=== PATIENT | male | born 1970 ===

== ENCOUNTER 2016-10-22 15:18 | Emergency (ER) | payer BC ==
[2016-10-22 15:57] VITALS: O2SAT 99
--- NOTE | 2016-10-22 17:18 | ED PDOC ---
Arrival/HPI - General Chief Complaint: Lower Extremity Problem/Injury Time Seen by Provider: 10/22/16 15:53 Historian: Patient - History of Present Illness Narrative History of Present Illness (Text): 10/22/16 17:15 46-year-old male presents today with a 3 week history of right leg pain. Patient states pain started after shoveling snow. Patient states the pain started in his low back radiated into his buttocks. Patient states then the pain traveled down into the posterior thigh and then down into the calf. Patient states occasionally he'll get a shooting pains going down the leg. He denies numbness weakness or tingling in the extremity. Patient states the pain is worse with movement. Patient states he is having difficulty standing up straight. He is complaining of some slight low back pain. Past Medical History - Provider Review Nursing Documentation Reviewed: Yes - Travel History Have you recently traveled outside [place] w/in the past 3 mons?: No - Infectious Disease Hx of Infectious Diseases: None - Tetanus Immunization Tetanus Immunization: Unknown - Cardiac Hx Cardiac Disorders: No - Pulmonary Hx Respiratory Disorders: No - Neurological Hx Neurological Disorder: No - HEENT Hx HEENT Disorder: Yes (eye glasses) - Renal Hx Renal Disorder: No - Endocrine/Metabolic Hx Diabetes Mellitus Type 2: Yes - Hematological/Oncological Hx Blood Disorders: No - Integumentary Hx Dermatological Disorder: No - Musculoskeletal/Rheumatological Hx Musculoskeletal Disorders: No - Gastrointestinal Hx Gastrointestinal Disorders: No Hx Bowel Surgery: No - Genitourinary/Gynecological Hx Genitourinary Disorders: No - Psychiatric Hx Psychophysiologic Disorder: No Hx Substance Use: No - Surgical History Hx Appendectomy: Yes Other/Comment: left neck cyst removal. - Anesthesia Hx Anesthesia: No Hx Anesthesia Reactions: No Hx Malignant Hyperthermia: No Family/Social History - Physician Review Nursing Documentation Reviewed: Yes Family/Social History: Unknown Family HX Smoking Status: Current Some Days Smoker Hx Alcohol Use: Yes Frequency of alcohol use: Socially Hx Substance Use: No Allergies/Home Meds Allergies/Adverse Reactions: Allergies No Known Allergies Allergy (Verified 10/22/16 16:11) Review of Systems - Review of Systems Constitutional: absent: Fatigue, Fevers Respiratory: absent: SOB, Cough Cardiovascular: absent: Chest Pain, Palpitations Gastrointestinal: absent: Abdominal Pain, Vomiting Genitourinary Male: absent: Dysuria, Frequency, Hematuria, Urinary Output Changes Musculoskeletal: Arthralgias, Back Pain. absent: Neck Pain Skin: absent: Rash, Pruritis Neurological: absent: Headache, Dizziness Psychiatric: absent: Anxiety, Depression Physical Exam Vital Signs Reviewed: Yes Vital Signs Temp Pulse Resp BP Pulse Ox 10/22/16 15:52 98.8 F 90 16 121/78 99 Temperature: Afebrile Blood Pressure: Normal Pulse: Regular Respiratory Rate: Normal Appearance: Positive for: Well-Appearing, Non-Toxic, Comfortable Pain Distress: None Mental Status: Positive for: Alert and Oriented X 3 - Systems Exam Head: Present: Atraumatic Mouth: Present: Moist Mucous Membranes Neck: Present: Normal Range of Motion Respiratory/Chest: Present: Clear to Auscultation, Good Air Exchange. No: Respiratory Distress, Accessory Muscle Use Cardiovascular: Present: Regular Rate and Rhythm, Normal S1, S2. No: Murmurs Abdomen: No: Tenderness Back: Present: Normal Inspection, Pain with Leg Raise. No: Midline Tenderness, Paraspinal Tenderness Lower Extremity: Present: CALF TENDERNESS, NORMAL PULSES, Normal ROM, Tenderness (Right leg: There is tenderness noted to the posterior calf and posterior thigh. There is full range of motion of the knee. Sensation and distal pulses are intact. Cap refill is less than 2), Neurovascularly Intact, Capillary Refill < 2 s. No: Edema, Swelling, Erythema, Deformity, Temperature Abnormalties Neurological: Present: GCS=15, Motor Func Grossly Intact, Normal Sensory Function Skin: Present: Warm, Dry, Normal Color. No: Rashes Psychiatric: Present: Alert, Oriented x 3 Medical Decision Making ED Course and Treatment: 10/22/16 17:28 Patient nontoxic well-appearing in no distress with stable vital signs. Toradol IM Patient is driving home so we will not give any sedating medications at this time. duplex of the right leg; no dvt verbal report from [facility]. Patient reassessment: Feeling better with medications ambulating with a steady gait. Muscle strength 5 out of 5 bilaterally. Patient states he has an appointment with the orthopedist Dr. Coleman tomorrow and has an appointment with his doctor on the 03 of november Patient with symptoms related to possible sciatica started after shoveling. Getting shooting pain down the right leg intermittently 3 weeks. Denies numbness weakness or tingling I advised to followup with the orthopedist within the next 2 days. Return if symptoms worsen persist or new symptoms develop Patient verbalizes understanding of discharge instructions and need for immediate followup. Impression: Back pain, leg pain Motrin every 6 hours as needed for pain Flexeril one tablet every 8 hours as needed for muscle spasms: May cause drowsiness percocet; one tablet every 6 hours as needed for moderate to severe pain: May cause drowsiness Followup with the orthopedist within the next 2 days Followup with primary care physician within the next 2 days Return if symptoms worsen persist or if new symptoms develop - RAD Interpretation Radiology Orders: 10/22/16 16:12 DUPLEX LOWER EXTRM VEIN RIGHT [US] Stat - Medication Orders Current Medication Orders: Discontinued Medications Ketorolac Tromethamine (Toradol) 60 mg IM STAT STA Stop: 10/22/16 16:18 Last Admin: 10/22/16 16:32 Dose: 60 MG IM Administration Charges Document 10/22/16 16:32 [facility] (Rec: 10/22/16 16:32 [facility] [id number]) Charges for Administration # of IM Administrations 1 Disposition/Present on Arrival - Present on Arrival Any Indicators Present on Arrival: No History of DVT/PE: No History of Uncontrolled Diabetes: No Urinary Catheter: No History of Decub. Ulcer: No History Surgical Site Infection Following: None - Disposition Have Diagnosis and Disposition been Completed?: Yes Diagnosis: Leg pain Disposition: HOME/ ROUTINE Disposition Time: 17:13 Patient Plan: Discharge Condition: GOOD Discharge Instructions (ExitCare): Leg Pain (ED), Sciatica (ED) Additional Instructions: Motrin every 6 hours as needed for pain Flexeril one tablet every 8 hours as needed for muscle spasms: May cause drowsiness percocet; 1 tablet every 6 hours as needed for moderate to severe pain; may cause drowsiness. Followup with the orthopedist within the next 2 days Followup with primary care physician within the next 2 days Return if symptoms worsen persist or if new symptoms develop Prescriptions: Cyclobenzaprine [Cyclobenzaprine HCl] 10 mg PO Q8 #10 tab Ibuprofen [Motrin] 600 mg PO Q6H PRN #20 tab PRN Reason: pain/fever reduction oxyCODONE/Acetaminophen [Percocet 5/325 mg Tab] 1 tab PO Q6H PRN #10 tab PRN Reason: moderate to severe pain Referrals: Audrey Mera MD [Staff Provider] - Follow up with primary Cuco Coleman DO [Staff Provider] - Follow up with primary José Miguel Valencia MD [Staff Provider] - Follow up with primary Forms: WORK NOTE
[2016-10-22 17:37] VITALS: BP 116/72; PULSE 70; RESP 18; TEMP 98
--- NOTE | 2016-10-22 18:16 | US ---
PROCEDURE: Right lower extremity venous US HISTORY: Leg pain and swelling. Evaluate for DVT. PHYSICIAN(S): Regan Monroe M.D. TECHNIQUE: Duplex sonography and color-flow Doppler with graded compression were used to evaluate the deep venous system of the right lower extremity. FINDINGS: The visualized deep venous system of the right lower extremity is sonographically normal and compressible. Normal waveforms and augmentation are seen. There is no sonographic evidence for deep venous thrombosis in the visualized segments of the right lower extremity. IMPRESSION: 1. No sonographic evidence for deep venous thrombosis in the visualized segments of the right lower extremity.
== END 2016-10-22 17:40 | disposition home or self-care (01) ==
LOC: ED 15:18
DX: M79.604 Pain in right leg (principal); E11.9 Type 2 diabetes mellitus without complications
CPT/HCPCS: 93971; 96372; 99283; J1885

== ENCOUNTER 2017-11-03 09:27 | Emergency (ER) | payer BC ==
[2017-11-03 09:49] VITALS: TEMP 98.8
[2017-11-03 09:50] VITALS: BMI 26.2
--- NOTE | 2017-11-03 10:12 | ED PDOC ---
Arrival/HPI - General Chief Complaint: Chest Pain Time Seen by Provider: 11/03/17 09:47 Historian: Patient - History of Present Illness Narrative History of Present Illness (Text): 11/03/17 10:11 A 47 year old male, whose past medical history includes hypertension and diabetes, presents to the emergency department complaining of right-side chest pain worsening since yesterday. Patient reports pain worsens with movement. Notes also experiencing dyspnea. Patient denies any fever, any trauma, or any other complaints at this time. No PMD Past Medical History - Provider Review Nursing Documentation Reviewed: Yes - Infectious Disease Hx of Infectious Diseases: None - Tetanus Immunization Tetanus Immunization: Unknown - Cardiac Hx Cardiac Disorders: Yes - Pulmonary Hx Respiratory Disorders: No - Neurological Hx Neurological Disorder: No - HEENT Hx HEENT Disorder: Yes (eye glasses) - Renal Hx Renal Disorder: No - Endocrine/Metabolic Hx Endocrine Disorders: Yes Hx Diabetes Mellitus Type 2: Yes - Hematological/Oncological Hx Blood Disorders: No - Integumentary Hx Dermatological Disorder: No - Musculoskeletal/Rheumatological Hx Musculoskeletal Disorders: No - Gastrointestinal Hx Gastrointestinal Disorders: No Hx Bowel Surgery: No - Genitourinary/Gynecological Hx Genitourinary Disorders: No - Psychiatric Hx Psychophysiologic Disorder: No Hx Substance Use: No - Surgical History Hx Appendectomy: Yes Other/Comment: left neck cyst removal - Anesthesia Hx Anesthesia: Yes Hx Anesthesia Reactions: No Hx Malignant Hyperthermia: No Family/Social History - Physician Review Nursing Documentation Reviewed: Yes Family/Social History: No Known Family HX Smoking Status: Current Some Days Smoker Hx Alcohol Use: Yes Frequency of alcohol use: Socially Hx Substance Use: No Allergies/Home Meds Allergies/Adverse Reactions: Allergies No Known Allergies Allergy (Verified 10/22/16 16:11) Home Medications: Home Meds Medication Instructions Recorded Confirmed ALPRAZolam [Xanax] 0.25 mg PO BID 11/03/17 11/03/17 Canagliflozin [Invokana] 300 mg PO DAILY 11/03/17 11/03/17 Glimepiride [amaRYL] 2 mg PO DAILY 11/03/17 11/03/17 Lisinopril [Zestril] 10 mg PO DAILY 11/03/17 11/03/17 Saxagliptin HCl/Metformin HCl 1 tab PO BID 11/03/17 11/03/17 [Kombiglyze Xr 2.5-1,000 mg Tab] Review of Systems - Physician Review All systems were reviewed & negative as marked: Yes - Review of Systems Constitutional: absent: Fevers Cardiovascular: Chest Pain (right side, worsening since yesterday), VU Physical Exam Vital Signs Reviewed: Yes Vital Signs Temp Pulse Resp BP Pulse Ox 11/03/17 11:42 81 17 132/80 99 11/03/17 11:16 89 18 138/79 98 11/03/17 09:32 98.8 F 91 H 17 141/88 98 Temperature: Afebrile Blood Pressure: Normal Pulse: Regular Respiratory Rate: Normal Appearance: Positive for: Well-Appearing Pain Distress: None Mental Status: Positive for: Alert and Oriented X 3 Finger Stick Blood Glucose: 143 - Systems Exam Head: Present: Atraumatic, Normocephalic Pupils: Present: PERRL Extroacular Muscles: Present: EOMI Conjunctiva: Present: Normal Mouth: Present: Moist Mucous Membranes Neck: Present: Normal Range of Motion Respiratory/Chest: Present: Clear to Auscultation, Good Air Exchange. No: Respiratory Distress, Accessory Muscle Use Cardiovascular: Present: Regular Rate and Rhythm, Normal S1, S2. No: Murmurs Abdomen: No: Tenderness, Distention, Peritoneal Signs Back: Present: Normal Inspection Upper Extremity: Present: Normal Inspection. No: Cyanosis, Edema Lower Extremity: Present: Normal Inspection. No: Edema Neurological: Present: GCS=15, CN II-XII Intact, Speech Normal Skin: Present: Warm, Dry, Normal Color. No: Rashes Psychiatric: Present: Alert, Oriented x 3, Normal Insight, Normal Concentration Medical Decision Making ED Course and Treatment: 11/03/17 10:13 Impression: 47 year old male with chest pain. Benign physical exam. Plan: -- EKG -- Chest X-ray -- Labs -- Urinalysis -- Reassess and disposition Progress Notes: EKG: Ordered, reviewed, and independently interpreted the EKG. Rate : 94 BPM Rhythm : NSR Interpretation : No ST-segment elevations or depressions, no T-wave inversions, normal intervals. Comparison : No previous EKG for comparison. 11/03/2017 10:44 Chest X-ray IMPRESSION: No active pulmonary disease. Dictator: Ev Purdy MD 11/03/17 16:48 atypical right sided pain, worse with movement. pt offered observation in hospital declines, notified of leukocytosis. advise outpt fu and return precautions - Lab Interpretations Lab Results: 11/03/17 09:40 11/03/17 09:40 Lab Results 11/03/17 10:30: Urine Color Yellow, Urine Appearance Clear, Urine pH 5.0, Ur Specific Otis 1.020, Urine Protein Negative, Urine Glucose (UA) >=1000, Urine Ketones Negative, Urine Blood Negative, Urine Nitrate Negative, Urine Bilirubin Negative, Urine Urobilinogen 0.2, Ur Leukocyte Esterase Negative 11/03/17 09:40: Sodium 141, Potassium 4.2, Chloride 102, Carbon Dioxide 28, Anion Gap 15, BUN 19, Creatinine 0.8, Est GFR ( Amer) > 60, Est GFR (Non- Af Amer) > 60, Random Glucose 145 H, Calcium 10.4, Magnesium 1.8, Total Bilirubin 0.3, AST 26, ALT 58 H, Alkaline Phosphatase 86, Lactate Dehydrogenase 486, Total Creatine Kinase 88, Troponin I < 0.01, NT-Pro-B Natriuret Pep 13.9, Total Protein 7.7, Albumin 4.8, Globulin 2.9, Albumin/Globulin Ratio 1.6 11/03/17 09:40: PT 10.4, INR 0.91 L, APTT 33.4, D-Dimer, Quantitative < 200 11/03/17 09:40: WBC 12.0 H, RBC 5.27, Hgb 15.6, Hct 45.4, MCV 86.1, MCH 29.6, MCHC 34.4, RDW 13.6, Plt Count 355, MPV 9.5, Gran % 60.9, Lymph % (Auto) 29.1, Woodson % (Auto) 7.1 H, Eos % (Auto) 2.4, Baso % (Auto) 0.5, Gran # 7.31 H, Lymph # (Auto) 3.5 H, Woodson # (Auto) 0.9 H, Eos # (Auto) 0.3, Baso # (Auto) 0.06 I have reviewed the lab results: Yes - RAD Interpretation Radiology Orders: 11/03/17 10:08 CHEST PORTABLE [RAD] Stat - Medication Orders Current Medication Orders: Discontinued Medications Naproxen (Anaprox Ds) 550 mg PO STAT STA Stop: 11/03/17 10:45 Last Admin: 11/03/17 11:13 Dose: 550 mg - Scribe Statement The provider has reviewed the documentation as recorded by the Angela Quintero Provider Nathanielibe Attestation: All medical record entries made by the Scribe were at my direction and personally dictated by me. I have reviewed the chart and agree that the record accurately reflects my personal performance of the history, physical exam, medical decision making, and the department course for this patient. I have also personally directed, reviewed, and agree with the discharge instructions and disposition. Disposition/Present on Arrival - Present on Arrival Any Indicators Present on Arrival: No History of DVT/PE: No History of Uncontrolled Diabetes: No Urinary Catheter: No History of Decub. Ulcer: No History Surgical Site Infection Following: None - Disposition Have Diagnosis and Disposition been Completed?: Yes Diagnosis: Chest pain Disposition: HOME/ ROUTINE Disposition Time: 04:00 Condition: STABLE Discharge Instructions (ExitCare): Chest Pain (ED) Additional Instructions: return to er with worsening symptoms or concerns. please see specialist. Prescriptions: Naproxen 500 mg PO BID PRN #14 PRN Reason: Pain, Mild (1-3) Referrals: Neil Barraza MD [Primary Care Provider] - Follow up with primary Rock Richard MD [Staff Provider] - Follow up with primary Forms: [employer] (Telugu)
[2017-11-03 10:16] LABS: BASO # 0.06 K/mm3 (0.0-2.0); BASO % 0.5 % (0.0-3.0); EOS # 0.3 (0.0-0.7); EOS % 2.4 % (1.5-5.0); GRAN # 7.31 (1.4-6.5); GRAN % 60.9 % (50.0-68.0); HEMOGLOBIN 15.6 g/dL (14.0-18.0); LYMPH # 3.5 (1.2-3.4); LYMPH % 29.1 % (22.0-35.0); MEAN CELL VOLUME 86.1 fl (80.0-105.0); MEAN CORPUSCULAR HEMOGLOBIN 29.6 pg (25.0-35.0); MEAN CORPUSCULAR HGB CONC 34.4 g/dl (31.0-37.0); MEAN PLATELET VOLUME 9.5 fl (7.0-11.0); MONO # 0.9 (0.1-0.6); MONO % 7.1 % (1.0-6.0); RBC 5.27 10^6/uL (3.5-6.1); RED CELL DISTRIBUTION WIDTH 13.6 % (11.5-14.5)
[2017-11-03 10:28] LABS: PROTHROMBIN TIME 10.4 SECONDS (9.4-12.5)
[2017-11-03 10:29] LABS: ALB/GLOB RATIO 1.6 (1.1-1.8); ALBUMIN 4.8 g/dL (3.0-4.8); ALT/SGPT 58 U/L (7-56); AST/SGOT 26 U/L (17-59); BLOOD UREA NITROGEN 19 mg/dL (7-21); CALCIUM 10.4 mg/dL (8.4-10.5); D DIMER < 200 ng/mL (0-243); GFR AFRICAN-AMERICAN > 60; GFR NON-AFRICAN AMERICAN > 60; INR 0.91 (0.93-1.08); PARTIAL THROMBOPLASTIN TIME 33.4 Seconds (25.1-36.5)
[2017-11-03 10:40] LABS: B-TYPE NATRIURETIC PEPTIDE 13.9 pg/mL (0-450); TROPONIN I < 0.01 ng/mL
[2017-11-03 10:42] LABS: URINE BILIRUBIN NEGATIVE (NEGATIVE); URINE BLOOD NEGATIVE (NEGATIVE); URINE GLUCOSE (UA) >=1000 mg/dL (NEGATIVE); URINE LEUKOCYTE ESTERASE NEGATIVE Leu/uL (NEGATIVE); URINE PROTEIN NEGATIVE mg/dL (<30 mg/dL); URINE UROBILINOGEN 0.2 E.U./dL (<1 E.U./dL)
[2017-11-03] MEDS ORDERED: Naproxen 550 mg Tab PO STA (10:44)
--- NOTE | 2017-11-03 10:46 | RAD ---
HISTORY: Chest pain COMPARISON: No prior. FINDINGS: LUNGS: The lungs are well inflated and clear. PLEURA: No significant pleural effusion identified, no pneumothorax apparent. CARDIOVASCULAR: Normal. OSSEOUS STRUCTURES: No significant abnormalities. VISUALIZED UPPER ABDOMEN: Normal. OTHER FINDINGS: None. IMPRESSION: No active pulmonary disease.
[2017-11-03 10:57] LABS: URINE APPEARANCE CLEAR (CLEAR); URINE COLOR YELLOW (YELLOW)
[2017-11-03 11:57] VITALS: BP 132/80; PULSE 81; RESP 17; O2SAT 99
--- NOTE | 2017-11-03 21:30 | CARD ---
APPROVED REPORT EKG Measurement Heart [id number] <Conclusion> Normal sinus rhythm Normal ECG
== END 2017-11-03 11:42 | disposition home or self-care (01) ==
LOC: ED 09:27
DX: R07.9 Chest pain, unspecified (principal); E11.9 Type 2 diabetes mellitus without complications; I10 Essential (primary) hypertension; F17.200 Nicotine dependence, unspecified, uncomplicated